=== PATIENT | male | born 1950 | race Caucasian/White ===

== ENCOUNTER → 2024-07-22 14:49 | Outpatient (BNVA) | payer MEDICARE, SELFPAY | PROVIDERS: PCP Internal Medicine; Referring Provider Internal Medicine; Visit Provider Physical Therapy Assistant | DX: Z12.11 Encounter for screening for malignant neoplasm of colon (principal) ==

== ENCOUNTER 2024-08-09 08:52 | Day surgery (SDC) | payer MEDICARE, SELFPAY ==
[2024-08-09 09:17] VITALS: BP 119/78; PULSE 47; RESP 15; TEMP 36; O2SAT 100
[2024-08-09] MEDS: Lactated Ringers 1,000 ML 80 ML IV (09:29)
--- NOTE | 2024-08-09 09:44 | W.ANESPRE ---
General Info Date of Service Date Performed: 08/09/24 Height: 5 ft 7 in Weight: 71.1 kg Body Mass Index (BMI): 24.5 Surgical Procedure: Operation Date: 08/09/24 10:05 Proposed Procedure Side Surgeon arya Stein MD Meds Allergies and Home Medications Allergies Allergy/AdvReac Type Severity Reaction Status Date / Time No Known Allergies Allergy Verified 08/09/24 09:13 Home Medication ?Medication ?Instructions ?Recorded flaxseed oil 1,000 mg capsule 500 mg PO DAILY 12/10/13 garlic 2,000 mg capsule 2,500 mg PO BID 12/10/13 ascorbic acid (vitamin C) 500 mg 500 mg PO .QD 02/06/23 capsule atorvastatin 10 mg tablet 20 mg PO DAILY 02/06/23 cephalexin 500 mg tablet 2,000 mg PO ONCE PRN 02/06/23 cholecalciferol (vitamin D3) 50 50 mcg PO DAILY 02/06/23 mcg (2,000 unit) capsule glucosamine sulfate 500 mg tablet 500 mg PO TID 02/06/23 (Glucosamine) loratadine 10 mg tablet (Allergy 10 mg PO DAILY 02/06/23 Relief (loratadine)) magnesium oxide 100 mg PO QID 02/06/23 multivitamin (Multi-Day tablet) 1 tab PO DAILY 02/06/23 omega-3 fatty acids 1,000 mg 1,000 mg PO TID 02/06/23 capsule rivaroxaban 20 mg tablet (Xarelto) 20 mg PO DAILY 02/06/23 bisacodyl 5 mg tablet,delayed 5 mg PO ONCE #4 tabs 07/22/24 release (Dulcolax (bisacodyl)) denosumab 120 mg/1.7 mL (70 mg/mL) 120 mg subcut Q4W 07/22/24 subcutaneous solution (Xgeva) leuprolide (3 month) 22.5 mg (3 22.5 mg IM [id number] 07/22/24 month) intramuscular syringe kit (Lupron Depot) oxybutynin chloride 5 mg 5 mg PO QAM #90 tab-caps 07/22/24 tablet,extended release 24 hr polyethylene glycol 3350 17 17 g PO ONCE #238 grams 07/22/24 gram/dose oral powder Current Visit Medications: Current Medications Generic Name Dose Route Start Last Admin Trade Name Freq PRN Reason Stop Dose Admin Ringer's Solution 1,000 mls @ 80 mls/hr 08/09/24 06:00 08/09/24 09:29 IV 09/05/24 23:59 80 mls/hr INFUSION JOSE MIGUEL Administration IV Miscellaneous Supplies 1 each 08/09/24 06:00 Iv Access IV 09/05/24 23:59 DIRECTED JOSE MIGUEL Sodium Chloride 0 ml 08/09/24 06:00 Normal Saline Flush 10 Ml Syr IV 09/05/24 23:59 PRN PRN Sodium Chloride 0 ml 08/09/24 06:00 Normal Saline 10 Ml Vial IJ 09/05/24 23:59 DIRECTED PRN Sterile Water 0 ml 08/09/24 06:00 Water,Injection,Sterile 10 Ml Vial IJ 09/05/24 23:59 DIRECTED PRN PFSH Active Problems Active Problems: Problem Status Onset Code Foot pain, right Acute M79.671 Foot pain, left Acute M79.672 Foot pain Acute M79.673 JOAQUIM on CPAP Chronic G47.33, Z99.89 Overactive bladder Acute N32.81 Medial epicondylitis Acute M77.00 Osteoarthritis Chronic M19.90 Hypertension Chronic I10 Hyperlipidemia Acute E78.5 Iron deficiency Acute E61.1 Afib Chronic I48.91 Medical History Medical History Gastritis Anemia BPH (benign prostatic hyperplasia) Allergic rhinitis Malignant neoplasm of prostate Surgical History Surgical History History of back surgery L4-L5, cartilage removal 2008 S/P TURP 12/21/2013 S/P matrixectomy of toe left hallux, medial edge History of appendectomy 10/16/2018 History of cardiac radiofrequency ablation 08/31/2020 History of total left hip replacement 06/19/2021 Tobacco Smoking/Tobacco Use Status: Former Tobacco Use Alcohol Alcohol Intake: never Substance Use Substance use: Never Substance use type: does not use Vital Signs and Lab Results Vital Signs Most Recent Vital Signs in EMR: Most Recent Vital Signs Temp Pulse Resp BP Pulse Ox 36 C L 47 L 15 119/78 100 08/09/24 09:17 08/09/24 09:17 08/09/24 09:17 08/09/24 09:17 08/09/24 09:17 Lab Results Blood Type / Crossmatch: No Data to Display Complete Blood Count: No Data to Display Complete Metabolic Panel: No Data to Display Liver Function Panel: No Data to Display Coagulation Panel: No Data to Display Cardiac Panel: No Data to Display Arterial Blood Gas: No Data to Display Venous Blood Gas: No Data to Display Pancreas Panel: No Data to Display Thyroid Panel: No Data to Display Infectious Disease: No Data to Display Blood Cultures: No Data to Display Toxicology Panel: No Data to Display Anesthesia Assessment and Plan Anesthesia History Personal History: No History of Anesthesia Complications Family History: No Family History of Anesthesia Complications Exercise Tolerance Exercise Tolerance: Metabolic Equivalents>4 Cardiac & Pulmonary Exam Cardiac Exam: Normal S1/S2 Heart Sounds Pulmonary Exam: Clear Bilateral Breath Sounds Implantable Cardiac Device Does patient have a Pacemaker or an ICD?: No Airway Exam Known Difficult Airway: No Mallampati Class: 1 Mouth Opening: Normal (> 3cm) Thyromental Distance: Greater than 3 cm Neck Range of Motion: Full ROM Neck Circumference: Normal Teeth Condition: Normal Dentition ASA Classification ASA Score: ASA 3 Emergency Case?: No NPO Status NPO Status: NPO Clears >2 hours, Solids >8 hours Anesthesia Plan Resuscitation Status: Full Code Anesthesia Technique: General Anesthesia Airway Planned: Natural Airway Monitors Used: Standard Monitors
[2024-08-09 09:47] VITALS: BMI 24.5
--- NOTE | 2024-08-09 10:30 | RT.EKG_ITS ---
APPROVED REPORT Exam: Resting ECG Reason for Exam: Rhythm Check Patient Location: O HR:41 bpm ECG Measurements Heart Rate 41 AXIS MI 173 P 45 QRSd 106 QRS 10 QT 532 T 8 QTc 437 Conclusion Sinus bradycardia...rate< 60 Otherwise normal ECG
--- NOTE | 2024-08-09 10:49 | BOWEL_PTH ---
PATIENT: Luis Soto LOC: [facility] U#:[id number] AGE/SX: 74/M ROOM: RE08/09/[address]: Skyler Stein : 1950 BED: DIS: 08/09/2024 SPEC #: [id number] RECD: 08/09/24 12:52 STATUS: JAYLIN REQ #: [id number] ANTELMO: 08/09/24 10:[address]: Skyler Stein DEPT: Surgical Specimen RECD BY: Lizbeth Barlow ENTERED: 08/09/24 12:53 SP TYPE: Bowel OTHR DR: Yumiko Bergeron Tissues: 1 - BIOPSY BOWEL Procedures: GROSS AND MICRO LEVEL 4 Comments: [id number]
[2024-08-09 11:00] VITALS: BP 123/61; PULSE 53; RESP 16; TEMP 36.3; O2SAT 98
--- NOTE | 2024-08-09 11:02 | COLE_ITS ---
Date of service: 08/09/24 Time of Service: 11:02 Colonoscopy Report Procedure Description: There isPROCEDURES PERFORMED: 1. Colonoscopy with hot snare polypectomy PREOPERATIVE DIAGNOSIS: Surveillance colonoscopy, diverticulosis POSTOPERATIVE DIAGNOSIS: sigmoid diverticulosis, grade 1 internal hemorrhoids, colorectal hyperplastic polyps SURGEON: Navjot Stein MD INDICATION for procedure: The patient is a 74-year-old man due for surveillance colonoscopy. No family history of colon cancer. No history of polyps. No symptoms. FINDINGS: There are diverticular changes in the left colon, most heavily concentrated in the sigmoid colon, no active diverticulitis and no stricture or fibrosis. There was a 3-5 mm sessile polyp removed with hot snare technique from the sigmoid colon. There were a few other small hyperplastic?appearing polyps in the rectum. There are grade 1 internal hemorrhoids. SURVEILLANCE interval/FOLLOW-UP: 3 - 10 years. If sessile serrate or villous histology, then in 3 years(not suspected). Otherwise, 7-10 year followup is acceptable. SPECIMENS: Yes EBL: Minimal COMPLICATIONS: None QUALITY of Prep: Excellent Procedure in detail: The patient gave written consent and was in agreement with the indications, the potential risks as well as the benefits of the procedure. They were taken to the endoscopy suite and laid in the left lateral decubitus position. A timeout was performed and anesthesia was administered which was t olerated well. I started the procedure. Digital rectal and visual examination was performed and grossly within normal limits. A well-lubricated flexible colonoscope was then introduced and passed w ithout any notable difficulty all the way to the cecum identified by the ileocecal valve and the appendiceal orifice. The scope was then slowly withdrawn with the above-noted findings. The patient tolerated the procedure well and was taken to the PACU in hemodynamically stable condition.
--- NOTE | 2024-08-09 11:05 | W.PM.DSUDISC ---
Date of service: 08/09/24 Time of Service: 11:06 Discharge Plan Disposition Patient Disposition: Home Condition: Good Discharge Details Attending Provider: Skyler Stein Primary Care Provider: Yumiko Bergeron Home Meds and New Rx's Prescriptions: No Action Lupron Depot (3 month) 22.5 mg syringe kit 22.5 mg IM [id number] Xgeva 120 mg/1.7 mL (70 mg/mL) solution 120 mg subcut Q4W bisacodyl [Dulcolax (bisacodyl)] 5 mg tablet,delayed release (DR/EC) 5 mg PO ONCE Qty: 4 0RF Rx Instructions: Take per colonoscopy instructions provided by ordering providers office polyethylene glycol 3350 17 gram/dose powder 17 g PO ONCE Qty: 238 0RF Rx Instructions: Take per colonoscopy instructions provided by ordering providers office Xarelto 20 mg tablet 20 mg PO DAILY Rx Instructions: with meal atorvastatin 10 mg tablet 20 mg PO DAILY glucosamine sulfate [Glucosamine] 500 mg tablet 500 mg PO TID Rx Instructions: administer with meals magnesium oxide 250 mg magnesium tablet 100 mg PO QID omega-3 fatty acids 1,000 mg capsule 1,000 mg PO TID ascorbic acid (vitamin C) 500 mg capsule 500 mg PO .QD cholecalciferol (vitamin D3) 50 mcg (2,000 unit) capsule 50 mcg PO DAILY loratadine [Allergy Relief (loratadine)] 10 mg tablet 10 mg PO DAILY cephalexin 500 mg tablet 2,000 mg PO ONCE PRN Rx Instructions: prior to dental work flaxseed oil 1,000 MG capsule 500 mg PO DAILY garlic 2,000 MG capsule 2,500 mg PO BID multivitamin [Multi-Day] Tablet 1 tab PO DAILY Rx Instructions: with iron oxybutynin chloride 5 mg tablet extended release 24hr 5 mg PO QAM Qty: 90 Discharge Instructions Additional Instructions: FINDINGS: A small polyp was found and removed today. This is nothing to worry about and this is why we do the colonoscopies. This gets reviewed at pathology which will dictate the next colonoscopy. Probably again, in 10 years. Diverticulosis and hemorrhoid disease were found today. These are extremely common, benign and nothing needs to be done about these common conditions. Stand Alone Forms: Colonoscopy Post Instructions Activity:: Activity as Tolerated Diet:: As Tolerated
[2024-08-09 11:36] VITALS: BP 130/71; PULSE 42; RESP 16; TEMP 36.2; O2SAT 99
--- NOTE | 2024-08-09 12:04 | W.ANESPOSTOP ---
Postoperative Evaluation Date, Time and Location Date Performed: 08/09/24 Time Performed: 11:48 Patient Location: Day Surgery Unit Vital Signs Most Recent Imported Vital Signs: Most Recent Vital Signs Temp Pulse Resp BP Pulse Ox 36.2 C L 42 L 16 130/71 99 08/09/24 11:36 08/09/24 11:36 08/09/24 11:36 08/09/24 11:36 08/09/24 11:36 Pain Score Most Recent Pain Score: Most Recent Pain Score Pain Level 0 08/09/24 11:00 Assessment Mental Status: Awake (Alert & Oriented to Patient Baseline) Airway and Respiratory Function: Patent airway with normal (patient baseline) respiratory exam Cardiovascular Function: Hemodynamically Stable Hydration Status: Adequately Hydrated Nausea & Vomiting: No Nausea or Vomiting Pain: Pt. Denies Any Pain Peripheral Nerve Block: Patient did not receive a nerve block Postoperative Comments:: Discussed 12-lead EKG for ?Afib vs Sinus Soctt vs ectopy during procedure. 12 lead reviewed with SB. Patient and spouse informed, no further questions at this time.
== END 2024-08-09 12:05 | disposition home or self-care (01) ==
PROVIDERS: PCP Internal Medicine; Visit Provider Student in an Organized Health Care Education/Training Program
PROC: 0DJD8ZZ Inspection of Lower Intestinal Tract, Via Natural or Artificial Opening Endoscopic (ICD-10-PCS; CPT 45378; principal; 2024-08-09 10:00)
DX: Z12.11 Encounter for screening for malignant neoplasm of colon (principal); K63.5 Polyp of colon; K62.1 Rectal polyp; K64.0 First degree hemorrhoids; K57.30 Diverticulosis of large intestine without perforation or abscess without bleeding
CPT/HCPCS: 45385; 00123; 88305; 93005; 93010; J1596; J2001; J2704